=== PATIENT | male | born 1985 | race Caucasian/White ===

== ENCOUNTER 2016-11-23 09:06 | Emergency (ER) | payer BC ==
[2016-11-23] MEDS ORDERED: Aspirin Low Dose CHEW TAB* 81 MG PO ONE (09:29)
[2016-11-23 10:04] LABS: Hematocrit 48 % (42-52); Hemoglobin 15.9 g/dl (14.0-18.0); Mean Corpuscular HGB Conc 34 g/dl (31-36); Mean Corpuscular Hemoglobin 31 pg (27-31); Mean Corpuscular Volume 92 fL (80-94); Mean Platelet Volume 8 um3 (7.4-10.4); Red Blood Count 5.14 10^6/ul (4.0-5.4); Red Cell Distribution Width 14 % (10.5-15); White Blood Count 7.3 10^3/ul (3.5-10.8)
[2016-11-23 10:23] LABS: Albumin 4.2 g/dL (3.2-5.2); BUN/Creatinine Ratio 12.2 (8-20); Calcium 9.6 mg/dL (8.6-10.3); EGFR African American 72.3 (>60); EGFR Non-African American 56.2 (>60); Globulin 3.8 g/dL (2-4); Potassium 4.3 mmol/L (3.5-5.0); Total Bilirubin 0.7 mg/dL (0.2-1.0)
--- NOTE | 2016-11-23 11:40 | RAD ---
INDICATION: Midsternal chest pain for 20 minutes now resolved. Question pneumonia and pneumothorax. COMPARISON: None. TECHNIQUE: Dual energy PA and routine lateral views of the chest were obtained. REPORT: Clear lungs and pleural spaces. Negative for pneumothorax. The heart, pulmonary vasculature, and mediastinal contours are unremarkable. Unremarkable osseous structures and soft tissue contours. IMPRESSION: No evidence for acute intrathoracic disease. Negative exam.
[2016-11-23 12:30] VITALS: BP 106/74
--- NOTE | 2016-11-23 13:59 | ED ---
buddy Chadwick Timothy, scribed for Ramses Perkins MD on 11/23/16 at 0919 . HPI Chest Pain - HPI Summary HPI Summary: Eleuterio Griffin is a 31 yo male presenting to [facility] with gradual onset right sided chest pain and pressure since 844, lasting 15 minutes and resolving spontaneously, he denies any current pain. He states he was on his knees playing with his daughter when he noticed his pain. He did not eat before the episode. He states that laying down helped with his pain. He denies any Hx of CP. He states he has had a runny nose for a while now. He did not self- medicate. He denies diaphoresis, nausea, abdominal pain or SOB. His MHx includes DM II, tobacco chewing. - History of Current Complaint Time Seen by Provider: 11/23/16 09:26 Hx Obtained From: Patient Onset/Duration: Started Minutes Ago, Resolved Time of Onset: 08:45 Timing: Intermittent - 15 minutes Initial Severity: Moderate Current Severity: Moderate Chest Pain Location: Mid Sternal - right sternal Chest Pain Radiates: No Character: Pressure/Squeezing Alleviating Factor(s): Spontaneous Resolution Associated Signs and Symptoms: Positive: Chest Pain. Negative: Shortness of Breath, Diaphoresis, Nausea - Allergy/Home Medications Allergies/Adverse Reactions: Allergies Allergy/AdvReac Type Severity Reaction Status Date / Time No Known Allergies Allergy Verified 11/23/16 09:08 PMH/Surg Hx/FS Hx/Imm Hx Endocrine/Hematology History: Reports: Hx Diabetes - type two - diet managed Denies: Hx Thyroid Disease Cardiovascular History: Denies: Hx Hypertension Respiratory History: Denies: Hx Asthma, Hx Chronic Obstructive Pulmonary Disease (COPD) GI History: Denies: Hx Ulcer Infectious Disease History: No Infectious Disease History: Denies: Hx Hepatitis, Hx Human Immunodeficiency Virus (HIV), Traveled Outside the [place] in Last 30 Days - Family History Known Family History: Positive: Cardiac Disease, Diabetes - TYPE1, Other - epilepsy Negative: Hypertension - Social History Alcohol Use: Daily Alcohol Amount: "1or 2 beers almost daily" Substance Use Type: Reports: None Smoking Status (MU): Former Smoker Type: Smokeless Tobacco Review of Systems Constitutional: Negative Negative: Skin Diaphoresis Eyes: Negative ENT: Negative Positive: Chest Pain Respiratory: Negative Negative: Shortness Of Breath Gastrointestinal: Negative Negative: Nausea Genitourinary: Negative Musculoskeletal: Negative Skin: Negative Neurological: Negative Psychological: Normal All Other Systems Reviewed And Are Negative: Yes Physical Exam - Summary Physical Exam Summary: The patient is well-nourished in no acute distress and in no acute pain. The skin is warm and dry and skin color reflects adequate perfusion. HEENT: The head is normocephalic and atraumatic. The pupils are equal and reactive. The conjunctivae are clear and without drainage. Nares are patent and without drainage. Mouth reveals moist mucous membranes and the throat is without erythema and exudate. The external ears are intact. The ear canals are patent and without drainage. The tympanic membranes are intact. Neck is supple with full range of motion and non-tender. There are no carotid bruits. There is no neck vein distension. Respiratory: Chest is non-tender. No reproducible CP. Lungs are clear to auscultation and breath sounds are symmetrical and equal. Cardiovascular: Hear is regular rate and rhythm. There is no murmur or rub auscultated. There is no peripheral edema and pulses are symmetrical and equal. Abdomen: The abdomen is soft and non-tender. There are normal bowel sounds heard in all four quadrants and there is no organomegaly palpated. Musculoskeletal: There is no back pain noted. Extremities are non-tender with full range of motion. There is good capillary refill. There is no peripheral edema or calf tenderness elicited. Neurological: Patient is alert and oriented to person, place and time. The patient has symmetrical motor strength in all four extremities. Cranial nerves are grossly intact. Deep tendon reflexes are symmetrical and equal in all four extremities. Psychiatric: The patient has an appropriate affect and does not exhibit any anxiety or depression. Triage Information Reviewed: Yes Vital Signs On Initial Exam: Initial Vitals Temp Pulse Resp BP Pulse Ox 96.6 F 63 16 110/74 97 11/23/16 09:08 11/23/16 09:08 11/23/16 09:08 11/23/16 09:08 11/23/16 09:08 Vital Signs Reviewed: Yes Diagnostics - Vital Signs Vital Signs Temp Pulse Resp BP Pulse Ox 11/23/16 09:08 96.6 F 63 16 110/74 97 - Laboratory Lab Results: Lab Results 11/23/16 11/23/16 11/23/16 Range/Units 09:50 09:50 09:50 WBC 7.3 (3.5-10.8) 10^3/ul RBC 5.14 (4.0-5.4) 10^6/ul Hgb 15.9 (14.0-18.0) g/dl Hct 48 (42-52) % MCV 92 (80-94) fL MCH 31 (27-31) pg MCHC 34 (31-36) g/dl RDW 14 (10.5-15) % Plt Count 246 (150-450) 10^3/ul MPV 8 (7.4-10.4) um3 Neut % (Auto) 60.4 (38-83) % Lymph % (Auto) 23.3 L (25-47) % [place] % (Auto) 5.7 (1-9) % Eos % (Auto) 9.5 H (0-6) % Baso % (Auto) 1.1 (0-2) % Absolute Neuts (auto) 4.4 (1.5-7.7) 10^3/ul Absolute Lymphs (auto) 1.7 (1.0-4.8) 10^3/ul Absolute Monos (auto) 0.4 (0-0.8) 10^3/ul Absolute Eos (auto) 0.7 H (0-0.6) 10^3/ul Absolute Basos (auto) 0.1 (0-0.2) 10^3/ul Absolute Nucleated RBC 0 10^3/ul Nucleated RBC % 0 D-Dimer, Quantitative < 200 (Less Than 230) ng/mL Sodium 136 (133-145) mmol/L Potassium 4.3 (3.5-5.0) mmol/L Chloride 102 (101-111) mmol/L Carbon Dioxide 29 (22-32) mmol/L Anion Gap 5 (2-11) mmol/L BUN 18 (6-24) mg/dL Creatinine 1.48 H (0.67-1.17) mg/dL Est GFR ( Amer) 72.3 (>60) Est GFR (Non-Af Amer) 56.2 (>60) BUN/Creatinine Ratio 12.2 (8-20) Glucose 79 (70-100) mg/dL Lactic Acid (0.5-2.0) mmol/L Calcium 9.6 (8.6-10.3) mg/dL Total Bilirubin 0.70 (0.2-1.0) mg/dL AST 29 (13-39) U/L ALT 17 (7-52) U/L Alkaline Phosphatase 39 (34-104) U/L Troponin I 0.00 (<0.04) ng/mL B-Natriuretic Peptide ( - 100) pg/mL Total Protein 8.0 (6.4-8.9) g/dL Albumin 4.2 (3.2-5.2) g/dL Globulin 3.8 (2-4) g/dL Albumin/Globulin Ratio 1.1 (1-3) Amylase 74 (29-103) U/L Lipase 27 (11.0-82.0) U/L 11/23/16 11/23/16 Range/Units 09:50 09:50 WBC (3.5-10.8) 10^3/ul RBC (4.0-5.4) 10^6/ul Hgb (14.0-18.0) g/dl Hct (42-52) % MCV (80-94) fL MCH (27-31) pg MCHC (31-36) g/dl RDW (10.5-15) % Plt Count (150-450) 10^3/ul MPV (7.4-10.4) um3 Neut % (Auto) (38-83) % Lymph % (Auto) (25-47) % [place] % (Auto) (1-9) % Eos % (Auto) (0-6) % Baso % (Auto) (0-2) % Absolute Neuts (auto) (1.5-7.7) 10^3/ul Absolute Lymphs (auto) (1.0-4.8) 10^3/ul Absolute Monos (auto) (0-0.8) 10^3/ul Absolute Eos (auto) (0-0.6) 10^3/ul Absolute Basos (auto) (0-0.2) 10^3/ul Absolute Nucleated RBC 10^3/ul Nucleated RBC % D-Dimer, Quantitative (Less Than 230) ng/mL Sodium (133-145) mmol/L Potassium (3.5-5.0) mmol/L Chloride (101-111) mmol/L Carbon Dioxide (22-32) mmol/L Anion Gap (2-11) mmol/L BUN (6-24) mg/dL Creatinine (0.67-1.17) mg/dL Est GFR ( Amer) (>60) Est GFR (Non-Af Amer) (>60) BUN/Creatinine Ratio (8-20) Glucose (70-100) mg/dL Lactic Acid 0.6 (0.5-2.0) mmol/L Calcium (8.6-10.3) mg/dL Total Bilirubin (0.2-1.0) mg/dL AST (13-39) U/L ALT (7-52) U/L Alkaline Phosphatase (34-104) U/L Troponin I (<0.04) ng/mL B-Natriuretic Peptide 8 ( - 100) pg/mL Total Protein (6.4-8.9) g/dL Albumin (3.2-5.2) g/dL Globulin (2-4) g/dL Albumin/Globulin Ratio (1-3) Amylase (29-103) U/L Lipase (11.0-82.0) U/L Result Diagrams: 11/23/16 09:50 11/23/16 09:50 Lab Statement: Any lab studies that have been ordered have been reviewed, and results considered in the medical decision making process. - Radiology CXR Xray Interpretation: No Acute Changes - IMPRESSION: No evidence for acute intrathoracic disease. Negative exam. Radiology Interpretation Completed By: Radiologist - EKG 0917 EKG Interpretation: Regular rate @ 52 BPM. PRWP, normal axis. Re-Evaluation - Re-Evaluation First Eval Re-Evaluation Time: 12:19 Change: Unchanged Comment: Pt is informed of the results of his imaging and lab studies. Pt is agreeable to be discharged. Chest Pain Course/Dx - Course Assessment/Plan: Eleuterio Griffin is a 31 yo male presenting to [facility] with CP lasting from 9732-2070, denying SOB, nausea, or skin diaphoresis during the episode. After clinical examination, negative CXR, normal EKG, and review of his lab work, he will be discharged home with chest pain and appropriate instructions. - Chest Pain Differential Diagnosis/HQI/PQRI: Acute AK, GI Disease, Lower Respiratory Infection, Pulmonary Embolism, Other: - chest pain, pneumothorax - Diagnoses Provider Diagnoses: Chest pain Discharge - Discharge Plan Condition: Stable Disposition: HOME Patient Education Materials: Chest Pain (ED) Referrals: Moris Hernandez MD [Primary Care Provider] - 2 Days Additional Instructions: Please follow up with your primary care physician regarding your visit to the emergency department. Return to the emergency department with any new or recurring symptoms. The documentation as recorded by the buddy red Timothy accurately reflects the service I personally performed and the decisions made by , Ramses Perkins MD.
== END 2016-11-23 12:29 | disposition home or self-care (01) ==
LOC: ED 09:06
DX: R07.9 Chest pain, unspecified (principal); R00.1 Bradycardia, unspecified; I44.5 Left posterior fascicular block; E11.9 Type 2 diabetes mellitus without complications; Z87.891 Personal history of nicotine dependence
CPT/HCPCS: 36415; 71020; 80053; 82150; 83605; 83690; 83880; 84484; 85025; 85379; 93005; 99282; A9270-GY